=== PATIENT | female | born 1965 | race Caucasian/White ===

== ENCOUNTER → 2024-06-21 13:18 | Outpatient (REF) | payer BC, SELFPAY | LOC: HWRAD 13:18 | PROVIDERS: ATTENDING PHYSICIAN Family Medicine | DX: R93.7 Abnormal findings on diagnostic imaging of other parts of musculoskeletal system (principal) | CPT/HCPCS: 77080 ==

== ENCOUNTER → 2024-11-18 17:14 | Outpatient (REF) | payer BC, SELFPAY | LOC: RAD 17:14 | PROVIDERS: ATTENDING PHYSICIAN Family Medicine | DX: R10.9 Unspecified abdominal pain (principal); R31.0 Gross hematuria | CPT/HCPCS: 74176 ==

== ENCOUNTER → 2024-11-25 07:33 | Outpatient (REF) | payer BC, SELFPAY | LOC: HWRAD 07:33 | PROVIDERS: ATTENDING PHYSICIAN Family Medicine | DX: R10.11 Right upper quadrant pain (principal) | CPT/HCPCS: 76700 ==

== ENCOUNTER → 2025-04-18 16:04 | Outpatient (REF) | payer OTHER, SELFPAY | LOC: RAD 16:04 | PROVIDERS: ATTENDING PHYSICIAN Physician Assistant; FAMILY PHYSICIAN Family Medicine | DX: R51.9 Headache, unspecified (principal); H53.9 Unspecified visual disturbance | CPT/HCPCS: 70450 ==

== ENCOUNTER 2025-06-15 17:00 | Emergency (ER) | payer OTHER, SELFPAY ==
[2025-06-15 17:00] VITALS: BMI 29.3
[2025-06-15 17:10] VITALS: BP 160/87
[2025-06-15 18:00] VITALS: BP 140/75
[2025-06-15 18:15] VITALS: BP 140/75
[2025-06-15 18:30] LABS: Hematocrit 38.8 % (37.0-47.0); Hemoglobin 13.0 g/dL (12.0-16.0); Mean Corp Hgb Conc. 33.5 g/dL (33.0-37.0); Mean Corpuscular Volume 91.7 fL (81.0-99.0); Nucleated Red Blood Cells % 0 %; Platelet Count 297 10^3/uL (130-400); Red Cell Dist. Width 12.4 % (11.5-14.5)
[2025-06-15 18:54] LABS: Troponin I 0.013 ng/ml
[2025-06-15 19:02] LABS: ALT (SGPT) 22 U/L (0-35); AST (SGOT) 21 U/L (14-36); Albumin 4.3 g/dl (3.5-5.0); Alkaline Phosphatase 69 U/L (38-126); Blood Urea Nitrogen 11 mg/dl (7-17); Calcium 9.6 mg/dl (8.4-10.2); Carbon Dioxide 21 mmol/L (22-30); Chloride 102 mmol/L (98-107); Estimated Creatinine Clearance 97 ml/min; Glucose 97 mg/dl (70-99); Potassium 4.1 mmol/L (3.5-5.1); Sodium 130 mmol/L (135-145); Total Protein 7.2 g/dl (6.3-8.2); eGFR > 60.00
[2025-06-15 20:00] VITALS: BP 123/74
[2025-06-15 20:18] LABS: Troponin I 0.014 ng/ml
--- NOTE | 2025-06-15 21:16 | ED.GENMED ---
History of Present Illness
General
Chief Complaint: Chest Pain
Source: patient
Exam Limitations: none
Time Seen by Provider: 06/15/25 18:33
Nursing documentation reviewed up to this point in time: agreed with
History of Present Illness
History of Present Illness:
60-year-old female past with history of hypertension presenting to the emergency department today with concerns of central chest pain that been off and on throughout the day now currently is asymptomatic. \\She claims that this feels like previous
indigestion but lasting longer than usual. Denies any nausea vomiting diaphoresis or shortness of breath associated. No history of heart disease no recent trauma surgery immobilization leg swelling history of blood clots or estrogen product usage.
Past History
Past History
ED Past Medical History: HTN and Other (Degenerative disc disease of the neck)
ED Past Surgical History: None
Social History
Tobacco: Non-smoker
Personal:
Living: with family
Employment: Employed
Review of Systems
Review of Systems
Allergies reviewed?: Yes
All Other Systems: ROS reviewed and negative except as documented in HPI and ROS
Phy Exam
Physical Exam
Physical Exam:
GENERAL: Alert , in no apparent distress
EYE: pupils equal and reactive
NECK: Supple, no significant adenopathy.
ENT: o/p clr, mmm.
CARDIAC: Regular rate and rhythm .
LUNGS: Clear breath sounds bilaterally, no acute respiratory distress, no wheezes/rales/rhonchi
ABDOMEN: Soft, without focal tenderness, no r/g, no cvat
NEUROLOGICAL: Alert and oriented, no focal neuro deficits
SKIN: Warm and dry, skin intact.
MUSCULOSKELETAL: No edema, well perfused.
PSYCH: Normal and appropriate interaction.
Scores
Heart Score for Chest Pain Patients
STEMI patient?: No
History: Slightly or Non-Suspicious
ECG: Normal
Age: >45 - <65 years
Risk Factors: 1 or 2 Risk Factors
Troponin: </= Normal Limit
Heart Score for Chest Pain Patients: 2
Heart Score Risk: 2.5% MACE over next 6 weeks
Course
Orders/Labs/Results
Orders:
Orders
06/15/25 17:00
EKG [Electrocardiogram (*1)] Urgent
Reason for Study: Chest Pain
EKG- Treatment ONCE
06/15/25 17:26
CBC/With Diff [Complete Blood Count/With Diff] Urgent
CMP [Comprehensive Metabolic Panel] Urgent
Troponin I Urgent
06/15/25 19:25
Chest [CR Chest - 2 Views ] Urgent
Comment:
Reason For Exam: cp
06/15/25 19:43
Troponin I Urgent
06/15/25 19:48
EKG [Electrocardiogram (*1)] Urgent
Reason for Study: Chest Pain
EKG- Treatment ONCE
Abnormal Lab Results
06/15/25
17:26
WBC 11.9 H 10^3/uL
(4.8-10.8)
MPV 12.0 H fL
(7.4-10.4)
Absolute Neuts (auto) 10.4 H 10^3/uL
(1.4-6.5)
Absolute Lymphs (auto) 0.7 L 10^3/uL
(1.2-3.4)
Neutrophils % 87.7 H %
(42.2-75.2)
Lymphocytes % 5.9 L %
(20.5-51.1)
Sodium 130 L mmol/L
(135-145)
Carbon Dioxide 21 L mmol/L
(22-30)
Total Bilirubin 1.4 H mg/dl
(0.2-1.3)
06/15/25 17:26
06/15/25 17:26
Vital Signs
Initial and Last Documented VS:
Initial Vital Signs
Temp Pulse Resp BP Pulse Ox
98.3 F 80 15 160/87 97
06/15/25 17:10 06/15/25 17:10 06/15/25 17:10 06/15/25 17:10 06/15/25 17:10
Last Documented Vital Signs
Temp Pulse Resp BP Pulse Ox
98.3 F 74 18 123/74 100
06/15/25 17:10 06/15/25 20:00 06/15/25 20:00 06/15/25 20:00 06/15/25 21:17
MDM/Problems Addressed
MDM/Problems Addressed:
60-year-old female presenting to the emergency department today with concerns of central chest pain that was off-and-on throughout the day today. No associated symptoms no radiation of pain. Vital signs normal throughout ER stay slight white count
of 11.9 otherwise labs without emergent findings. Troponin negative EKG without ischemic changes no changes with repeated EKG second troponin negative as well. Chest x-ray normal. Very low risk for ACS at this time. Stable for close outpatient
follow-up. Return precautions given.
*Pulse Oximetry
SaO2: 100
Oxygen Mode of Delivery: Room air
Patient hypoxic: no (100)
*Critical Care Note
Total Time (30-74mins, 75-104mins- exclusive of procedures): Not Applicable
ED Attending Note
-
Portions of this chart may have been created with voice recognition software.� Occasional wrong word or��sound alike� substitutions may have occurred due to the inherent limitations of voice recognition software.
Discharge Plan
Departure
Patient Disposition: Home (Routine Discharge)
Date of Disposition: 06/15/25
Time of Disposition: 21:16
Patient with high blood pressure during this ER visit?: No
Condition: Good
Covid-19: Not Applicable
Discharge Problem:
Chest pain
Instructions: Chest Pain CBC Follow Up
Prescriptions:
No Action
losartan 25 MG tablet
25 mg PO DAILY
albuterol sulfate 1 PUFF HFA aerosol inhaler
2 puff inhalation Q4H PRN (Reason: sob)
sertraline 50 MG tablet
50 mg PO HS
Referrals:
Smith Gudino MD [Family Provider, [facility]]
Activity Restrictions/Additional Instructions:
You came to the emergency department today with concerns of chest pain. Here your reassuring assessment. Please follow closely with cardiology. Return for any worsening, new or concerning symptoms.
Interventions
Interventions:
*Risk Screen - Suicide Last Done: 06/15/25 17:10
*General Assessment Last Done: 06/15/25 17:10
*Neglect/Abuse Screening Last Done: 06/15/25 17:10
*ED- Fall Risk Assessment Last Done: 06/15/25 18:26
*ED COVID-19 Vaccine History Last Done: 06/15/25 17:10
*ED Influenza Vaccine History Last Done: 06/15/25 17:10
*Nursing Disposition Last Done: 06/15/25 21:17
ED- Cardiac Assessment Last Done: 06/15/25 18:26
Discharge Date and Time
Discharge Date/Time: 06/15/25 21:21
Print Language: JAPANESE
== END 2025-06-15 21:21 | disposition home or self-care (01) ==
LOC: EMR 17:00
PROVIDERS: Emergency Medicine; Physician Assistant; EMERGENCY PHYSICIAN Student in an Organized Health Care Education/Training Program; FAMILY PHYSICIAN Family Medicine
DX: R07.9 Chest pain, unspecified (principal); I10 Essential (primary) hypertension; M50.30 Other cervical disc degeneration, unspecified cervical region
CPT/HCPCS: 99284; 71046; 80053; 84484; 85025; 93005